=== PATIENT | female | born 1960 | race Caucasian/White ===

== ENCOUNTER → 2018-04-15 | Outpatient (REF) | payer OTHER ==
[2018-04-15 14:05] LABS: BASO # 0.1 10^3/uL (0.0-0.2); BASO % 0.7 % (0.0-1.0); EOS # 0.2 10^3/uL (0.0-0.50); EOS % 3.2 % (0.0-3.0); HEMOGLOBIN 15.1 g/dl (12.0-15.5); IMMATURE GRANULOCYTE % 0.6 % (0-3.0); LYMPH % 28.8 % (24.0-44.0); MEAN CORPUSCULAR HEMOGLOBIN 28.2 pg (27.0-33.0); MEAN CORPUSCULAR HGB CONC 32.8 g/dl (32.0-36.5); MEAN CORPUSCULAR VOLUME 85.8 fl (80.0-96.0); MONO # 0.6 10^3/uL (0.0-0.8); MONO % 8.3 % (0.0-5.0); NEUTROPHILS # 4.1 10^3/uL (1.8-7.7); NEUTROPHILS % 58.4 % (36.0-66.0); PLATELET COUNT, AUTOMATED 283 10^3/uL (150-450); RED BLOOD COUNT 5.36 10^6/uL (4.00-5.40); RED CELL DISTRIBUTION WIDTH 12.6 % (11.5-14.5)
[2018-04-15 14:46] LABS: ALBUMIN 4.6 GM/DL (3.2-5.2); ALBUMIN/GLOBULIN RATIO 1.35 (1.00-1.93); ALKALINE PHOSPHATASE 94 U/L (45-117); ALT/SGPT 31 U/L (12-78); ANION GAP 6 MEQ/L (8-16); AST/SGOT 20 U/L (7-37); BILIRUBIN,TOTAL 0.4 MG/DL (0.2-1.0); BLOOD UREA NITROGEN 19 MG/DL (7-18); CALCIUM LEVEL 9.1 MG/DL (8.5-10.1); CARBON DIOXIDE LEVEL 28 MEQ/L (21-32); CHLORIDE LEVEL 106 MEQ/L (98-107); GLOMERULAR FILTRATION RATE > 60.0 (>51); GLUCOSE, FASTING 90 MG/DL (70-100); POTASSIUM SERUM 4.3 MEQ/L (3.5-5.1); SODIUM LEVEL 140 MEQ/L (136-145)
[2018-04-15 14:50] LABS: TOTAL 25(OH) VITAMIN D 57.6 NG/ML (30.0-100.0)
== END ==
LOC: M LABNEURO 09:30
DX: G35 Multiple sclerosis (principal)
CPT/HCPCS: 80053

== ENCOUNTER → 2018-12-02 | Outpatient (REF) | payer OTHER, MEDICARE ==
[2018-12-02 18:34] LABS: BASO % 0.4 % (0.0-1.0); EOS # 0.2 10^3/uL (0.0-0.50); EOS % 3.4 % (0.0-3.0); HEMATOCRIT 41.7 % (36.0-47.0); HEMOGLOBIN 14.1 g/dl (12.0-15.5); LYMPH # 2.2 10^3/uL (1.5-4.5); LYMPH % 31.7 % (24.0-44.0); MEAN CORPUSCULAR HEMOGLOBIN 28.5 pg (27.0-33.0); MEAN CORPUSCULAR HGB CONC 33.8 g/dl (32.0-36.5); MEAN CORPUSCULAR VOLUME 84.4 fl (80.0-96.0); MONO # 0.5 10^3/uL (0.0-0.8); MONO % 7.6 % (0.0-5.0); NEUTROPHILS % 56.5 % (36.0-66.0); PLATELET COUNT, AUTOMATED 282 10^3/uL (150-450); RED BLOOD COUNT 4.94 10^6/uL (4.00-5.40)
[2018-12-02 19:02] LABS: ALBUMIN 4.3 GM/DL (3.2-5.2); ALT/SGPT 35 U/L (12-78); BILIRUBIN,TOTAL 0.6 MG/DL (0.2-1.0); BLOOD UREA NITROGEN 12 MG/DL (7-18); CALCIUM LEVEL 9.2 MG/DL (8.5-10.1); CARBON DIOXIDE LEVEL 25 MEQ/L (21-32); CHLORIDE LEVEL 106 MEQ/L (98-107); CREATININE FOR GFR 0.82 MG/DL (0.55-1.30); GLOMERULAR FILTRATION RATE > 60.0 (>51); GLUCOSE, FASTING 81 MG/DL (70-100); POTASSIUM SERUM 4.2 MEQ/L (3.5-5.1); SODIUM LEVEL 140 MEQ/L (136-145); TOTAL PROTEIN 7.2 GM/DL (6.4-8.2)
== END ==
LOC: M LABNEURO 14:26
PROVIDERS: ATTEND Psychiatry & Neurology Neurology
DX: G35 Multiple sclerosis (principal)

== ENCOUNTER → 2019-04-17 | Outpatient (REF) | payer MEDICARE ==
[2019-04-17 19:18] LABS: TOTAL 25(OH) VITAMIN D 63.9 NG/ML (30.0-100.0)
[2019-04-18 10:39] LABS: HEPATITIS B SURFACE ANTIBODY NEGATIVE (POSITIVE); HEPATITIS B SURFACE ANTIGEN NEGATIVE (NEGATIVE)
[2019-04-24 08:06] LABS: HEPATITIS B CORE ANTIBODY IGG Negative (Negative)
== END ==
LOC: M LABNEURO 13:29
PROVIDERS: ATTEND Psychiatry & Neurology Neurology
DX: E55.9 Vitamin D deficiency, unspecified (principal); G35 Multiple sclerosis; Z79.899 Other long term (current) drug therapy

== ENCOUNTER → 2019-05-02 | Outpatient (CLI) | payer MEDICARE ==
--- NOTE | 2019-05-02 20:21 | ECGEPIP ---
[facility] Test Date: 2019-05-02 Pat Name: ASTON TAPIA Department: Room: - Gender: Female [employer] Detective: [facility] : 1960 Requested By: Jan Florian Order Number: [id number] Reading MD: Devendra Marroquin Measurements Intervals [place] Rate: 65 P: 54 RI: 160 QRS: 22 QRSD: 86 T: 58 QT: 384 QTc: 400 Interpretive Statements Normal sinus rhythm Somewhat low voltages with slow precordial R-wave progression Body habitus versus pulmonary disease. Rule out prior septal injury. No prior tracing for comparison. Clincal correlation advised Electronically Signed on 05-02-2019 20:21:13 EDT by Devendra Marroquin
== END ==
LOC: M EKG 10:20
PROVIDERS: ATTEND Orthopaedic Surgery
DX: Z01.810 Encounter for preprocedural cardiovascular examination (principal); G56.03 Carpal tunnel syndrome, bilateral upper limbs; G56.23 Lesion of ulnar nerve, bilateral upper limbs; R94.31 Abnormal electrocardiogram [ECG] [EKG]

== ENCOUNTER 2019-05-12 11:44 | Outpatient (CLI) | payer MEDICARE ==
[~2019-05-12] VITALS: Ht 147.3 cm; Wt 82.7 kg
[2019-05-12 11:49] VITALS: BP 158/81
[2019-05-12] MEDS ORDERED: OCRELIZUMAB 300 MG in NS 250 ML IV ONE (12:00)
[2019-05-12] MEDS ORDERED: methylPREDNISolone INJ 125 MG/2 ML VIAL (J2930) IV ONE (12:00)
[2019-05-12] MEDS ORDERED: ACETAMINOPHEN TAB 650MG DOSE (2X325MG) PO ONE (12:00)
[2019-05-12] MEDS ORDERED: 0.22 MICRON FILTER (METHACHOLINE/OCREVUS) XX ONE (12:00)
[2019-05-12] MEDS ORDERED: diphenhydrAMINE 25 MG CAP PO ONE (12:00)
[2019-05-12 13:15] VITALS: BP 136/75
[2019-05-12 13:45] VITALS: BP 121/62
[2019-05-12 14:15] VITALS: BP 117/65
[2019-05-12 15:40] VITALS: BP 112/58
[2019-05-12 16:00] VITALS: BP 121/66
== END 2019-05-12 16:00 | disposition home or self-care (01) ==
LOC: M INFU 11:44
PROVIDERS: ATTEND Psychiatry & Neurology Neurology
DX: G35 Multiple sclerosis (principal)
CPT/HCPCS: 96375; 96413; 96415; J2350; J2930

== ENCOUNTER → 2019-09-29 | Outpatient (REF) | payer MEDICARE | LOC: M LABNEURO 14:50 | PROVIDERS: ATTEND Psychiatry & Neurology Neurology | DX: E55.9 Vitamin D deficiency, unspecified (principal) ==

== ENCOUNTER 2019-11-11 08:28 | Outpatient (CLI) | payer MEDICARE ==
[2019-11-11] VITALS (12 sets, daily range): BP systolic 107–134; BP diastolic 55–76
[~2019-11-11] VITALS: Ht 149.9 cm; Wt 82.7 kg
[2019-11-11] MEDS ORDERED: diphenhydrAMINE 25 MG CAP PO ONE (09:00)
[2019-11-11] MEDS ORDERED: methylPREDNISolone INJ 125 MG/2 ML VIAL (J2930) IV ONE (09:00)
[2019-11-11] MEDS ORDERED: ACETAMINOPHEN TAB 650MG DOSE (2X325MG) PO ONE (09:00)
[2019-11-11] MEDS ORDERED: OCRELIZUMAB 600 MG in NS 500 ML IV ONE (09:30)
[2019-11-11] MEDS ORDERED: OCRE300I IV (10:41)
== END 2019-11-11 17:05 | disposition home or self-care (01) ==
LOC: M INFU 08:28
PROVIDERS: ATTEND Psychiatry & Neurology Neurology
DX: G35 Multiple sclerosis (principal)
CPT/HCPCS: 96375; 96413; 96415; J2350; J2930

== ENCOUNTER 2020-05-10 08:15 | Outpatient (CLI) | payer MEDICARE ==
[~2020-05-10] VITALS: Ht 149.9 cm; Wt 82.0 kg
[~2020-05-10 08:15] MED LIST: OCRE300I IV
[2020-05-10 08:20] VITALS: BP 135/74
[2020-05-10] MEDS ORDERED: OCRELIZUMAB 600 MG in NS 500 ML IV ONE (08:30)
[2020-05-10] MEDS ORDERED: diphenhydrAMINE 25MG CAP PO ONE (08:30)
[2020-05-10] MEDS ORDERED: methylPREDNISolone 125MG 2ML VIAL IV ONE (08:30)
[2020-05-10] MEDS ORDERED: ACETAMINOPHEN TAB 650MG DOSE (2X325MG) PO ONE (08:30)
[2020-05-10] MEDS ORDERED: OMEP40CA97 PO (08:52)
[2020-05-10] MEDS ORDERED: SERT-138 PO (08:52)
[2020-05-10] MEDS ORDERED: L-LY500T14 PO (08:52)
[2020-05-10] MEDS ORDERED: ATOR40TA75 PO (08:52)
[2020-05-10 09:30] VITALS: BP 118/66
[2020-05-10 10:00] VITALS: BP 113/54
[2020-05-10 10:30] VITALS: BP 123/62
[2020-05-10 11:30] VITALS: BP 111/57
[2020-05-10] MEDS ORDERED: 0.22 MICRON FILTER (METHACHOLINE/OCREVUS) XX ONE (12:45)
[2020-05-10 14:15] VITALS: BP 111/84
== END 2020-05-10 14:15 | disposition home or self-care (01) ==
LOC: M INFU 08:15
PROVIDERS: ATTEND Psychiatry & Neurology Neurology
DX: G35 Multiple sclerosis (principal)
CPT/HCPCS: 96375; 96413; 96415; J2350; J2930

== ENCOUNTER 2021-05-09 08:38 | Outpatient (CLI) | payer MEDICARE ==
[~2021-05-09] VITALS: Ht 147.3 cm; Wt 87.2 kg
[2021-05-09] VITALS (7 sets, daily range): BP systolic 114–136; BP diastolic 60–76
[~2021-05-09 08:38] MED LIST changes: +ACETAMINOPHEN TAB 650MG DOSE (2X325MG) PO ONE; +ATOR40TA75 PO; +L-LY500T14 PO; +OCRELIZUMAB 600 MG in NS 500 ML IV ONE; +OMEP40CA97 PO; +SERT-138 PO; +diphenhydrAMINE 25MG CAP PO ONE; +methylPREDNISolone 125MG 2ML VIAL IV ONE
== END 2021-05-09 15:20 | disposition home or self-care (01) ==
LOC: M INFU 08:38
PROVIDERS: ATTEND Psychiatry & Neurology Neurology
DX: G35 Multiple sclerosis (principal)
CPT/HCPCS: 96375; 96413; 96415; J2350; J2930